=== PATIENT | male | born 1990 | race African-American/Black ===

== ENCOUNTER 2022-04-27 05:25 | Inpatient (IN) ==
[2022-04-27] MEDS ORDERED: ASPIRIN 325 MG TABLET PO STA (06:07)
[2022-04-27 06:31] LABS: Basophils # 0.1 10*3/uL (0.0-0.2); Basophils % 0.8 % (0.0-0.8); Eosinophils # 0.2 10*3/uL (0.0-0.87); Eosinophils % 2.3 % (0.00-10.9); Hematocrit 43.5 VOL% (42.0-52.0); Hemoglobin 14.6 GM/DL (14.0-18.0); Immature Granulocytes % 0.1 %; Immature Granulocytes Absolute 0.01 #; Lymphocytes # 2.8 10*3/uL (1.4-4.0); Lymphocytes % 37.5 % (21.2-54.2); Mean Corpuscular HGB Conc 33.6 GM/DL (32-36); Mean Corpuscular Volume 93.8 FL (87-102); Mean Platelet Volume 8.5 FL (9.6-12.0); Monocytes # 0.6 10*3/uL (0.11-0.8); Monocytes % 8.2 % (1.7-12.7); Neutrophils % 51.1 % (38.7-73.9); Platelet Count 425 T/CUMM (130-400); Red Blood Count 4.64 MC/CUMM (3.8-5.5); Red Cell Distribution Width 12.7 % (9.3-17.3); White Blood Count 7.5 T/CUMM (4-12)
[2022-04-27 06:59] LABS: Calcium 9.4 MG/DL (8.5-10.1); Osmolality,Calculated 278.4 MOS/KG (273-304); Potassium 3.9 MMOL/L (3.5-5.1)
[2022-04-27] MEDS ORDERED: HEPARIN 5,000 UNIT/1 ML VIAL IV ONE (07:00)
[2022-04-27] MEDS ORDERED: NITROGLYCERIN SL 0.4 MG TABLET SL ONE (07:03)
[2022-04-27] MEDS: NITROGLYCERIN SL 0.4 MG TABLET SL PRN ×2 (07:07→07:14)
[2022-04-27] MEDS ORDERED: TICAGRELOR 90 MG TABLET PO STA (07:20)
[2022-04-27 07:36] LABS: Barbiturates Screen,Urine Negative (Negative); Benzodiazepines Screen,Urine Negative (Negative); Cannabinoid Screen,Urine Negative (Negative); Opiate Screen,Urine Negative (Negative); Phencyclidine Screen,Urine Negative (Negative)
[2022-04-27] MEDS ORDERED: ONDANSETRON 4 MG/2 ML VIAL IV PRN (07:44)
[2022-04-27] MEDS ORDERED: ACETAMINOPHEN 325 MG TABLET PO PRN (07:44)
[2022-04-27] MEDS ORDERED: PANTOPRAZOLE 40 MG TABLET PO SCH (09:00)
[2022-04-27] MEDS ORDERED: VALSARTAN 80 MG TABLET PO SCH (09:28)
[2022-04-27] MEDS ORDERED: DIAZEPAM 5 MG TABLET PO ONE (10:32)
[2022-04-27] MEDS ORDERED: diphenhydrAMINE CAP 50 MG CAPSULE PO ONE (10:32)
[2022-04-27] MEDS ORDERED: fentaNYL 100 MCG/2 ML VIAL ONE (10:56)
[2022-04-27] MEDS ORDERED: NITROGLYCERIN DRIP 50 MG/250 ML BOTTLE IV ONE (10:56)
[2022-04-27] MEDS ORDERED: MIDAZOLAM 2 MG/2 ML VIAL ONE ×2 (10:56→11:38)
[2022-04-27] MEDS ORDERED: HEPARIN/NACL 0.9% 2 UNITS/ML 2,000 UNIT/1,000 ML BAG IV ONE (10:56)
[2022-04-27] MEDS ORDERED: VERAPAMIL 5 MG/2 ML VIAL ONE (10:57)
[2022-04-27] MEDS ORDERED: SODIUM CHLORIDE 0.45% 1,000 ML IV SCH (11:00)
[2022-04-27] MEDS ORDERED: HEPARIN 5,000 UNIT/1 ML VIAL ONE (11:28)
[2022-04-27] MEDS ORDERED: HYDROmorphone 1 MG/1 ML SYRINGE ONE (11:38)
[2022-04-27] MEDS ORDERED: GLUCAGON 1 MG VIAL IM PRN (12:15)
[2022-04-27] MEDS ORDERED: MORPHINE 2 MG/1 ML SYRINGE IV PRN (12:15)
[2022-04-27] MEDS ORDERED: NITROGLYCERIN DRIP 50 MG/250 ML BOTTLE IV PRN (12:17)
[2022-04-27] MEDS ORDERED: DEXTROSE 10% 250 ML BAG IV PRN (12:22)
[2022-04-27] MEDS ORDERED: METOPROLOL SUCCINATE XL 25 MG TABLET PO SCH (12:30)
[2022-04-27 13:21] VITALS: BP 130/81
[2022-04-27] MEDS ORDERED: NITROGLYCERIN DRIP 50 MG/250 ML BOTTLE IV SCH (13:30)
[2022-04-27] MEDS ORDERED: ROSUVASTATIN 20 MG TABLET PO SCH (21:00)
[2022-04-28] MEDS ORDERED: ASPIRIN EC 81 MG TABLET PO SCH (09:00)
== END 2022-04-27 16:43 | disposition hospice, home (50) | DRG 282 ==
LOC: N.ED 05:25 → N.EDINP 05:25 → N.2W 08:13 → N.ICU 13:18
PROVIDERS: ADMIT Internal Medicine Cardiovascular Disease; ATTEND Internal Medicine Cardiovascular Disease